=== PATIENT | female | born 1985 | race Caucasian/White ===

== ENCOUNTER 2017-01-19 16:16 | Emergency (ER) | payer BC ==
[~2017-01-19 16:16] MED LIST: AUGMENTIN 875-1 EAC1; BIRTH CONTROL; CARAFATE 1GM1 G PO; ED ZITHROM6 TAB/BOTT; KETOROLAC10 MG PO; LEVOFLOXACIN500 M1; LEVOTHYROXIN0.112 MG; LEVOTHYROXINE175 MCG PO; LIDOCAINE HC20 MG/M1; MINASTRIN 24 FE1 KIT; OMEPRAZOLE40 MG PO; PREDNISONE; SUMATRIPTAN SU100 MG PO; TRIAMCINOLONE A15 GM; VIBRAMYCIN HYC100 MG PO; ZOFRAN ODT8 M1 PO
== END 2017-01-19 17:17 | disposition home or self-care (01) ==
LOC: ED 16:16
DX: L02.416 Cutaneous abscess of left lower limb (principal); L03.116 Cellulitis of left lower limb

== ENCOUNTER 2017-02-21 06:06 | Emergency (ER) | payer BC ==
[2017-02-21] MEDS ORDERED: BACTRIM DS TAB1 EACH PO (06:36)
== END 2017-02-21 06:50 | disposition home or self-care (01) ==
LOC: ED 06:06
DX: L03.116 Cellulitis of left lower limb (principal)
CPT/HCPCS: 90715; A4550

== ENCOUNTER → 2018-06-03 | Outpatient (CLI) | payer BC ==
[2017-02-21 06:50] VITALS: BP 130/88
[~2018-06-03] MED LIST changes: +BACTRIM DS TAB1 EACH PO
[2018-06-03 16:39] LABS: HEMATOCRIT 39.8 % (37.0-47.0); HEMOGLOBIN 12.6 g/dL (12.5-16.0); MEAN PLATELET VOLUME 8.6 fl (7.4-10.4); RED BLOOD COUNT 4.96 M/mm3 (4.10-5.30); RED CELL DISTRIBUTION WIDTH 14.9 % (11.5-14.5); WHITE BLOOD COUNT 8.4 K/mm3 (4.8-10.8)
[2018-06-03 16:41] LABS: ALBUMIN 4.1 g/dL (3.5-5.0); CALCIUM 8.8 mg/dL (8.4-10.2); POTASSIUM 4.3 mmol/L (3.6-5.0); TOTAL BILIRUBIN 0.4 mg/dL (0.2-1.3); TOTAL PROTEIN 8.5 g/dL (6.3-8.2)
== END ==
LOC: LAB 15:52
PROVIDERS: Family Medicine
DX: N91.1 Secondary amenorrhea (principal); N92.6 Irregular menstruation, unspecified; E89.0 Postprocedural hypothyroidism; R53.83 Other fatigue; K21.9 Gastro-esophageal reflux disease without esophagitis

== ENCOUNTER → 2019-04-22 | Outpatient (CLI) | payer BC ==
[2017-02-21 06:50] VITALS: BP 130/88
== END ==
LOC: LAB 16:21
DX: D23.4 Other benign neoplasm of skin of scalp and neck (principal); E89.0 Postprocedural hypothyroidism

== ENCOUNTER → 2021-11-05 | Outpatient (CLI) | payer OTHER ==
[2021-11-05 15:51] LABS: BASO # 0.01 K/mm3 (0.02-0.10); EOS # 0.06 K/mm3 (0.04-0.40); EOS % 0.9 % (1.0-5.0); HEMATOCRIT 39.3 % (37.0-47.0); LYMPH# 2.35 K/mm3 (1.50-4.00); MEAN CELL VOLUME 86 fl (78-100); MEAN CORPUSCULAR HEMOGLOBIN 28 pg (27-31); MEAN CORPUSCULAR HGB CONC 33 g/dL (33-37); MEAN PLATELET VOLUME 8.8 fl (7.4-10.4); NEU # 4.12 K/mm3 (1.40-6.50); PLATELET COUNT 200 K/mm3 (130-400); RED BLOOD COUNT 4.58 M/mm3 (4.10-5.30); RED CELL DISTRIBUTION WIDTH 13.1 % (11.5-14.5)
[2021-11-05 15:58] LABS: ALBUMIN 4.1 g/dL (3.5-5.0)
[2021-11-05 15:59] LABS: CALCIUM 9.4 mg/dL (8.3-10.5)
[2021-11-05 16:01] LABS: TOTAL PROTEIN 7.5 g/dL (6.4-8.3)
[2021-11-05 16:02] LABS: TOTAL BILIRUBIN 0.5 mg/dL (0.2-1.2)
[2021-11-06 00:13] LABS: HEPATITIS B SURFACE ANTIBODY <2.0 (()); HEPATITIS C VIRUS ANTIBODY Negative (Negative)
[2021-11-06 02:07] LABS: SYPHILIS AB SCREEN w REFLEX Negative (Negative)
[2021-11-07 07:42] LABS: HERPES SIMPLEX TYPE 1 IGG 1.56 Index (()); HERPES SIMPLEX TYPE 1 IGG INTP Positive (Negative); HERPES SIMPLEX TYPE 2 IGG 0.28 Index (())
== END ==
LOC: LAB 15:29
PROVIDERS: Family Medicine
DX: Z11.3 Encounter for screening for infections with a predominantly sexual mode of transmission (principal); Z12.4 Encounter for screening for malignant neoplasm of cervix; Z00.00 Encounter for general adult medical examination without abnormal findings; Z13.220 Encounter for screening for lipoid disorders; Z13.1 Encounter for screening for diabetes mellitus

== ENCOUNTER → 2022-02-13 | Outpatient (CLI) | payer BC | LOC: LAB 14:43 | DX: Z01.89 Encounter for other specified special examinations (principal) ==

== ENCOUNTER → 2022-04-03 | Outpatient (CLI) | payer BC ==
[2022-04-03 15:56] LABS: URINE APPEARANCE HAZY; URINE COLOR YELLOW; URINE PROTEIN(semi-quant) TRACE (NEGATIVE)
[2022-04-03 15:57] LABS: URINE BILIRUBIN NEGATIVE (NEGATIVE); URINE BLOOD 250 ery/uL (NEGATIVE); URINE KETONE NEGATIVE (NEGATIVE); URINE LEUKOCYTE ESTERASE NEGATIVE (NEGATIVE); URINE MUCUS PRESENT (NOT PRESENT); URINE NITRATE NEGATIVE (NEGATIVE); URINE UROBILINOGEN NORMAL (NORMAL)
== END ==
LOC: LAB 14:45
PROVIDERS: Family Medicine
DX: Z11.3 Encounter for screening for infections with a predominantly sexual mode of transmission (principal); I10 Essential (primary) hypertension

== ENCOUNTER → 2022-05-06 | Outpatient (CLI) | payer BC ==
[2022-05-06 17:24] LABS: URINE APPEARANCE CLEAR; URINE BILIRUBIN 1+ (NEGATIVE); URINE BLOOD 50 ery/uL (NEGATIVE); URINE COLOR YELLOW; URINE KETONE NEGATIVE (NEGATIVE); URINE LEUKOCYTE ESTERASE NEGATIVE (NEGATIVE); URINE MUCUS PRESENT (NOT PRESENT); URINE NITRATE NEGATIVE (NEGATIVE); URINE PROTEIN(semi-quant) 1+ (NEGATIVE); URINE UROBILINOGEN NORMAL (NORMAL)
== END ==
LOC: LAB 16:46
PROVIDERS: Family Medicine
DX: Z11.3 Encounter for screening for infections with a predominantly sexual mode of transmission (principal); R31.9 Hematuria, unspecified; E11.9 Type 2 diabetes mellitus without complications; I10 Essential (primary) hypertension

== ENCOUNTER → 2023-09-15 | Outpatient (CLI) | payer BC ==
[2023-09-15 14:11] LABS: CALCIUM 9.2 mg/dL (8.3-10.5)
== END ==
LOC: LAB 13:48
PROVIDERS: Family Medicine
DX: E11.9 Type 2 diabetes mellitus without complications (principal); E89.0 Postprocedural hypothyroidism; I10 Essential (primary) hypertension; G43.009 Migraine without aura, not intractable, without status migrainosus

== ENCOUNTER → 2023-12-22 | Outpatient (CLI) | payer OTHER ==
[2023-12-22 14:39] LABS: CALCIUM 8.8 mg/dL (8.3-10.5)
== END ==
LOC: LAB 14:14
PROVIDERS: Family Medicine
DX: E11.9 Type 2 diabetes mellitus without complications (principal); E89.0 Postprocedural hypothyroidism

== ENCOUNTER → 2024-03-22 | Outpatient (CLI) | payer OTHER ==
[2024-03-22 09:15] LABS: CALCIUM 9.1 mg/dL (8.3-10.5)
== END ==
LOC: LAB 08:58
PROVIDERS: Family Medicine
DX: E11.65 Type 2 diabetes mellitus with hyperglycemia (principal); E89.0 Postprocedural hypothyroidism

== ENCOUNTER → 2024-09-06 | Outpatient (CLI) | payer OTHER ==
[~2024-09-06] MED LIST changes: +INSULIN HUMA100 U/ML SQ; +LOSARTAN POTASS25 MG PO; +PROPRANOLOL HCL80 M4 PO; +TOUJEO SOL300 UNIT/1 IN
[2024-09-06 09:34] LABS: CALCIUM 9.4 mg/dL (8.3-10.5)
== END ==
LOC: LAB 09:08
PROVIDERS: Family Medicine
DX: E11.65 Type 2 diabetes mellitus with hyperglycemia (principal); E89.0 Postprocedural hypothyroidism

== ENCOUNTER → 2024-09-22 | Outpatient (CLI) | payer OTHER ==
[2024-09-22 12:06] LABS: HEMATOCRIT 38.9 % (37.0-47.0); HEMOGLOBIN 12.8 g/dL (12.5-16.0); MEAN PLATELET VOLUME 8.3 fl (7.4-10.4); RED BLOOD COUNT 4.55 M/mm3 (4.10-5.30); WHITE BLOOD COUNT 8.5 K/mm3 (4.8-10.8)
== END ==
LOC: LAB 11:54
PROVIDERS: Family Medicine
DX: N92.4 Excessive bleeding in the premenopausal period (principal)

== ENCOUNTER → 2024-11-18 | Outpatient (CLI) | payer OTHER ==
[2024-11-18 16:43] LABS: BASO # 0.02 K/mm3 (0.02-0.10); EOS # 0.08 K/mm3 (0.04-0.40); HEMATOCRIT 36.3 % (37.0-47.0); HEMOGLOBIN 11.7 g/dL (12.5-16.0); LYMPH# 2.68 K/mm3 (1.50-4.00); MEAN CELL VOLUME 86 fl (78-100); MEAN CORPUSCULAR HEMOGLOBIN 28 pg (27-31); MEAN CORPUSCULAR HGB CONC 32 g/dL (33-37); MEAN PLATELET VOLUME 8.2 fl (7.4-10.4); MONO # 0.49 K/mm3 (0.20-0.80); NEU # 4.95 K/mm3 (1.40-6.50); PLATELET COUNT 288 K/mm3 (130-400); RED CELL DISTRIBUTION WIDTH 13.2 % (11.5-14.5); WHITE BLOOD COUNT 8.2 K/mm3 (4.8-10.8)
[2024-11-18 16:55] LABS: CLUE CELLS NOT OBSERVED (Not Observd)
[2024-11-18 17:00] LABS: URINE APPEARANCE TURBID (CLEAR); URINE COLOR RED (YELLOW); URINE PROTEIN(semi-quant) 1+ (NEGATIVE)
[2024-11-18 17:01] LABS: URINE BILIRUBIN NEGATIVE (NEGATIVE); URINE BLOOD 3+ (NEGATIVE); URINE GLUCOSE TRACE (NEGATIVE); URINE KETONE NEGATIVE (NEGATIVE); URINE LEUKOCYTE ESTERASE NEGATIVE (NEGATIVE); URINE NITRATE NEGATIVE (NEGATIVE)
[2024-11-19 00:32] LABS: HEPATITIS C ANTIBODY Negative (Nonreactiv)
== END ==
LOC: LAB 16:25
PROVIDERS: Nurse Practitioner Family
DX: Z20.2 Contact with and (suspected) exposure to infections with a predominantly sexual mode of transmission (principal); N93.9 Abnormal uterine and vaginal bleeding, unspecified
CPT/HCPCS: Q0111

== ENCOUNTER → 2024-12-06 | Outpatient (CLI) | payer OTHER ==
[2024-12-06 09:50] LABS: HEMATOCRIT 29.7 % (37.0-47.0); HEMOGLOBIN 9.4 g/dL (12.5-16.0); RED BLOOD COUNT 3.37 M/mm3 (4.10-5.30); WHITE BLOOD COUNT 6.7 K/mm3 (4.8-10.8)
== END ==
LOC: LAB 09:39
PROVIDERS: Family Medicine
DX: N92.4 Excessive bleeding in the premenopausal period (principal); E11.65 Type 2 diabetes mellitus with hyperglycemia

== ENCOUNTER → 2025-02-23 | Outpatient (CLI) | payer OTHER | LOC: LAB 16:54 | DX: Z11.3 Encounter for screening for infections with a predominantly sexual mode of transmission (principal) ==

== ENCOUNTER → 2025-02-28 | Outpatient (CLI) | payer OTHER | LOC: LAB 11:14 | DX: E11.65 Type 2 diabetes mellitus with hyperglycemia (principal) ==